=== PATIENT | female | born 1985 | race Asian ===

== ENCOUNTER 2022-07-09 23:30 | Emergency (ER) | payer OTHER ==
[~2022-07-09] VITALS: Ht 162.6 cm; Wt 63.6 kg
[2022-07-10] MEDS ORDERED: IBUPROFEN 600 MG TABLET PO ONE (00:15)
[2022-07-10 01:00] VITALS: BP 131/82
== END 2022-07-10 01:56 | disposition home or self-care (01) ==
LOC: EMS 23:31
DX: R51.9 Headache, unspecified (principal); I10 Essential (primary) hypertension
CPT/HCPCS: 99281; 99283